=== PATIENT | female | born 1945 | race Caucasian/White ===

== ENCOUNTER → 2023-07-09 10:55 | Outpatient (BNVA) | payer MEDICARE, MEDICAID, SELFPAY | PROVIDERS: Family Provider Family Medicine; Visit Provider Podiatrist Foot & Ankle Surgery | DX: E11.9 Type 2 diabetes mellitus without complications (principal); B35.1 Tinea unguium | CPT/HCPCS: 99203 ==

== ENCOUNTER 2024-08-18 09:38 | Emergency (ER) | payer MEDICARE, MEDICAID, SELFPAY ==
[2024-08-18 09:44] VITALS: BP 157/99; PULSE 82; RESP 17; TEMP 36.8; O2SAT 97
--- NOTE | 2024-08-18 09:48 | ED_ITS ---
HPI - Fall General: Chief Complaint: Extremity Injury, Upper Stated Complaint: fall Time Seen by Provider: 08/18/24 09:41 Source: patient and EMS Mode of arrival: EMS Limitations: altered mental status (pt with hx of dementia) History of Present Illness: Patient is a nice 79-year-old female with a history of dementia here from her senior care for evaluation following a fall. senior care reports states that the fall was witnessed. Patient was running down the [place] towards the bathroom when she accidentally tripped and fell and struck face first . They did state her nose bled for a small amount of time before subsiding. There was no LOC. She reportedly is not on anticoagulation. Patient tells me she does not remember falling. She feels like her nose feels sore but has no other physi telly complaints at this time. MD complaint: fall Onset (ago): hour(s) Fall from: standing Fall witnessed: yes, by living facility staff Place fall occurred: home Loss of consciousness: None Prolonged down time: no Symptoms prior to fall: none Context: tripped/slipped Location of injury: face Associated symptoms-after fall: Reports no associated symptoms; Denies difficulty walking, headache(s), lightheadedness or neck pain Related Data Home Medications Medication Instructions Recorded Confirmed acetaminophen 325 mg tablet 325 mg PO Q4H 08/18/24 08/18/24 (Tylenol) atorvastatin 20 mg tablet 20 mg PO QPM 08/18/24 08/18/24 bisacodyl 10 mg rectal suppository 10 mg CA DAILY 08/18/24 08/18/24 cyanocobalamin (vitamin B-12) 250 250 mcg PO DAILY 08/18/24 08/18/24 mcg tablet donepezil 10 mg tablet 10 mg PO QPM 08/18/24 08/18/24 fluticasone propionate 50 1 spray intranasal DAILY 08/18/24 08/18/24 mcg/actuation nasal spray,suspension insulin detemir U-100 100 unit/mL 58 unit SUBCUT QPM 08/18/24 08/18/24 (3 mL) subcutaneous pen insulin lispro 100 unit/mL See Rx Instructions .Route .COMPLEX 08/18/24 08/18/24 subcutaneous solution (Humalog U-100 Insulin) lisinopril 20 1 tab PO DAILY 11/04/24 11/04/24 mg-hydrochlorothiazide 25 mg tablet metformin 1,000 mg tablet 1,000 mg PO BID 08/18/24 08/18/24 sitagliptin phosphate 50 mg tablet 50 mg PO DAILY 08/18/24 08/18/24 (Jay) trazodone 50 mg tablet 50 mg PO DAILY 08/18/24 08/18/24 Allergies Allergy/AdvReac Type Severity Reaction Status Date / Time No Known Allergies Allergy Unverified 07/09/23 11:00 Review of Systems General: Reports: Other (unknown how accurate this is with her dementia) Const: Denies: fever(s) Eyes: Denies: change in vision ENMT: Reports: sinus pain (states her nose feels sore); Denies: dental pain Card: Denies: palpitations, irregular heart rhythm or lightheadedness Resp: Denies: dyspnea GI: Denies: nausea or vomiting Musc: Denies: neck pain, back pain, extremity pain, extremity swelling, joint pain or joint swelling Neuro: Denies: headache(s), difficulty walking or dizziness Physical Exam Const: COMMON NORMALS: no acute distress, average body habitus, healthy appearing, alert and well nourished EXAM LIMITATIONS: altered mental status (chronic dementia; at baseline per senior care) GENERAL APPEARANCE: cooperative ORIENTATION/CONSCIOUSNESS: Yes awake and Yes oriented to person HENMT: COMMON NORMALS: normocephalic, atraumatic and TM's normal bilaterally HEAD & SCALP: normal to inspection, normocephalic and atraumatic; no Davidson's sign, no hematoma and no raccoon eyes FACE & SINUS: other (mild ecchymosis nose) NOSE: Other nasal findings present (mild ecchymosis; tenderness; mild dried blood to nares) TYMPANIC MEMBRANE: TM's normal bilaterally MOUTH: other (no intraoral injuries noted) Eye: COMMON NORMALS: Equal, round and reactive pupils present and EOMs intact bilaterally GENERAL EYE: appearance normal, both eyes and all related structures and normal light reflex PUPIL: Yes Equal, round and reactive pupils present DIRECT OPHTHALMOSCOPY: Yes normal light reflex Neck/C-Spine: COMMON NORMALS: full ROM GENERAL: Yes normal visual inspection CERVICAL SPINE: Yes cervical ROM normal, Yes pain with cervical ROM, Yes Cervical spine tenderness (states it feels sore ), No step off deformity and No Paracervical muscle tenderness Chest: COMMONS NORMALS: normal inspection of the chest and normal palpation of entire chest wall Resp: COMMON NORMALS: normal respiratory effort and clear to auscultation bilaterally AUSCULTATION: clear to auscultation bilaterally Cardio: COMMON NORMALS: regular rate and regular rhythm RATE: regular rate RHYTHM: regular rhythm GI: COMMON NORMALS: Normal to inspection, nondistended, normoactive bowel sounds present, Soft to palpation, non-tender, No hepatosplenomegaly present and no masses INSPECTION: Yes normal to inspection and No abdominal wall ec chymosis AUSCULTATION: Yes normoactive bowel sounds PALPATION: Yes Soft to palpation and Yes No hepatosplenomegaly present Back/Pelvis: COMMON NORMALS: thoracic and lumbar spine normal to inspection, no thoracic nor lumbar tenderness and thoraco-lumbar ROM normal Extremity: COMMON NORMALS: normal to inspection and full ROM GENERAL: Yes normal exam except as noted Neuro: NINI COMA SCALE: document GCS findings Nixon coma scale eye opening: Spontaneous Nixon coma scale verbal response: Orientated Nini coma scale motor response: Obey commands Nini coma scale total score: 15 COMMON NORMALS: CN's II-XII intact bilaterally, moves all extremities, no focal motor deficits, no sensory deficits noted and gait normal SENSORIUM/ORIENTATION: Yes alert and Yes oriented to person SPEECH: speech normal GAIT: Yes Normal gait present Skin: COMMON NORMALS: no rashes or lesions noted GENERAL SKIN EXAM: no rashes or lesions noted TRAUMA: no lacerations or abrasions Course Vital Signs: Vital signs: Vital Signs Temperature 98.2 F 08/18/24 09:44 Pulse Rate 76 08/18/24 10:08 Respiratory Rate 17 08/18/24 09:44 Blood Pressure 145/85 08/18/24 10:08 Pulse Oximetry 96 08/18/24 10:08 Oxygen Delivery Me thod Room Air 08/18/24 10:08 MDM - Fall Medical Decision Making Patient clinically appears in no acute distress. Her vital signs are stable. She was a witnessed trip and fall from her senior care. She feels like her nose and neck feels sore. CTs of her head, cervical spine, and facial bones were obtained. She has no evidence for intracranial trauma. She does have a slightly depressed nasal bone fracture. Will have CM set her up with ENT for this. CT cervical spine negative. Patient will allowed discharge back to her senior care. Medical Records I reviewed the patient's medical records. Lab Data Radiology Impressions Cervical Spine CT 08/18/24 09:48 IMPRESSION: No evidence of acute fracture or dislocation. Face CT 08/18/24 09:48 IMPRESSION: 1. Slight depressed fractures involving the LEFT anterior nasal bones. 2. No other visualized acute fractures. 3. Frothy secretions in the sphenoid sinus compatible with sinusitis. 4. Opacification the RIGHT mastoid air cells and middle ear. Head CT 08/18/24 09:48 IMPRESSION: 1. No evidence of intracranial hemorrhage or mass effect. 2. Slightly depressed fracture LEFT anterior nasal bones. 3. Chronic appearing opacification RIGHT mastoid air cells and middle ear. 4. No acute intracranial findings. All radiology interpretation(s) finalized by discharge Discharge Plan Discharge Patient Disposition: Home Clinical Impression: Fall on same level from tripping Closed fracture nasal bone Qualifiers: Encounter type: initial encounter Qualified Code(s): S02.2XXA - Fracture of nasal bones, initial encounter for closed fracture Condition: Stable Prescriptions: No Action acetaminophen [Tylenol] 325 mg Tablet 325 mg PO Q4H atorvastatin 20 mg Tablet 20 mg PO QPM trazodone 50 mg Tablet 50 mg PO DAILY donepezil 10 mg Tablet 10 mg PO QPM cyanocobalamin (vitamin B-12) 250 mcg Tablet 250 mcg PO DAILY bisacodyl 10 mg Suppository 10 mg CA DAILY metformin 1,000 mg Tablet 1,000 mg PO BID lisinopril-hydrochlorothiazide 20-25 mg Tablet 1 tab PO DAILY Rx Instructions: take 1 tablet by mouth in the morning, hold for systolic bp is less than 100 or pulse is less than 60 insulin lispro [Humalog U-100 Insulin] 100 unit/mL Solution See Rx Instructions .ROUTE .COMPLEX Rx Instructions: inject as per sliding scale, 150-200=0 201-250=2 251-300=4 301-350=6 351-400=8 subq before meals fluticasone propionate 50 mcg/actuation [place],Suspension 1 spray INTRANASAL DAILY Rx Instructions: administer into each nostril insulin detemir U-100 100 unit/mL (3 mL) Insulin Pen 58 unit SUBCUT QPM Januvia 50 mg Tablet 50 mg PO DAILY Discharge Orders: Discharge ED (Routine); Ordered 08/18/24 Ordered By: Eli Jasso Patient Instructions: Nasal Fracture (ED) Activity Restrictions/Additional Instructions: Patient's imaging of her head and cervical spine were unremarkable. CT facial bones showing a slightly depressed nasal bone fracture. Case management will have her follow-up with ENT for this. She will be allowed discharge back to her senior care. Coding Level of Care Code ED Funder for Shaina Badillo
--- NOTE | 2024-08-18 09:48 | CT_ITS ---
WS: [id number] CT HEAD TECHNIQUE: Noncontrast CT of the head obtained from the skullbase to the vertex. CLINICAL INFORMATION: trauma/fall COMPARISON: None. DLP: 3125.[address] scans at [facility] use at least one of these dose optimization techniques: automated e xposure control; mA and/or kV adjustment per patient size (includes targeted exams where dose is matc hed to clinical indication); or iterative reconstruction. FINDINGS: No evidence of intracranial hemorrhage or mass effect. Ventricular system and basal cisterns are bone nt. Moderate small vessel changes with moderate parenchymal volume loss. No extra-axial fluid collect ions. No evidence of mass or mass effect. Slight depressed fracture of the LEFT anterior nasal bones. Mucosal thickening in the paranasal sinus es. Small amount of fluid in the sphenoid sinus. Chronic appearing opacification RIGHT mastoid air ce lls and middle ear. LEFT mastoid air cells are well aerated. Vascular calcification. CT/CT head wo con* [id number] IMPRESSION: 1. No evidence of intracranial hemorrhage or mass effect. 2. Slightly depressed fracture LEFT anterior nasal bones. 3. Chronic appearing opacification RIGHT mastoid air cells and middle ear. 4. No acute intracranial findings.
--- NOTE | 2024-08-18 09:48 | CT_ITS ---
WS: [id number] CT FACIAL BONES TECHNIQUE: Noncontrast facial bones with coronal and sagittal reformatted images. CLINICAL INFORMATION: trauma/fall COMPARISON: None. DLP: 3125.[address] scans at [facility] use at least one of these dose optimization techniques: automated e xposure control; mA and/or kV adjustment per patient size (includes targeted exams where dose is matc hed to clinical indication); or iterative reconstruction. FINDINGS: Slight depressed fractures involving the LEFT anterior nasal bones. No other visualized acu te fractures. Frothy secretions in the sphenoid sinus compatible with sinusitis. Mucosal thickening in the LEFT greater than RIGHT maxillary sinuses and frontoethmoidal recesses. Nor mal posterior nasopharynx. Opacification the RIGHT mastoid air cells and middle ear. CT/CT facial bones wo con* [id number] IMPRESSION: 1. Slight depressed fractures involving the LEFT anterior nasal bones. 2. No other visualized acute fractures. 3. Frothy secretions in the sphenoid sinus compatible with sinusitis. 4. Opacification the RIGHT mastoid air cells and middle ear.
--- NOTE | 2024-08-18 09:48 | CT_ITS ---
WS: [id number] CT CERVICAL TRAUMA TECHNIQUE: Noncontrast CT of the cervical spine with coronal and sagittal reformatted images. CLINICAL INFORMATION: trauma/fall COMPARISON: None. DLP: 3125.[address] scans at [facility] use at least one of these dose optimization techniques: automated e xposure control; mA and/or kV adjustment per patient size (includes targeted exams where dose is matc hed to clinical indication); or iterative reconstruction. FINDINGS: Straightening of the normal cervical lordosis. Pannus at the C1-2 articulation. Slight anterolisthesi s C4 on C5. Disc space narrowing worse at C3-C4 C4-C5 and C5-C6. Normal craniocervical junction. Dens is normal in appearance. Normal occipital condyles. No high-grad e spinal canal narrowing. Normal C1 ring. No evidence of acute fracture or dislocation. Normal prevertebral soft tissues. Few prominent cervical lymph nodes nonspecific, but likely reactive . Chronic opacification RIGHT mastoid air cells and middle ear. Nodular thyroid. CT/CT cervical spin wo con* [id number] IMPRESSION: No evidence of acute fracture or dislocation.
[2024-08-18 10:08] VITALS: BP 145/85; PULSE 76; O2SAT 96
[2024-08-18 14:53] VITALS: BP 138/65; PULSE 80; O2SAT 96
--- NOTE | 2024-08-19 07:45 | DCPLANNER ---
Sent referral for [facility]- Patient has facial fx - [facility] will not take
== END 2024-08-18 14:55 | disposition home or self-care (01) ==
PROVIDERS: Emergency Provider Physician Assistant
DX: S02.2XXA Fracture of nasal bones, initial encounter for closed fracture (principal); W01.0XXA Fall on same level from slipping, tripping and stumbling without subsequent striking against object, initial encounter; Z79.4 Long term (current) use of insulin
CPT/HCPCS: 70450; 70486; 72125; 99284

== ENCOUNTER → 2025-04-27 10:07 | Outpatient (BNVA) | payer MEDICARE, MEDICAID, SELFPAY | PROVIDERS: Visit Provider Nurse Practitioner Family | DX: D48.5 Neoplasm of uncertain behavior of skin (principal); D22.61 Melanocytic nevi of right upper limb, including shoulder; D22.71 Melanocytic nevi of right lower limb, including hip | CPT/HCPCS: 99203 ==

== ENCOUNTER → 2025-06-05 09:32 | Outpatient (BNVA) | payer MEDICARE, MEDICAID, SELFPAY | PROVIDERS: Visit Provider Dermatology | DX: D48.5 Neoplasm of uncertain behavior of skin (principal) | CPT/HCPCS: 11602; 12032 ==

== ENCOUNTER → 2025-06-19 10:39 | Outpatient (BNVA) | payer MEDICARE, MEDICAID, SELFPAY | PROVIDERS: Visit Provider Dermatology | DX: L57.8 Other skin changes due to chronic exposure to nonionizing radiation (principal); L81.4 Other melanin hyperpigmentation; Z08 Encounter for follow-up examination after completed treatment for malignant neoplasm; Z85.828 Personal history of other malignant neoplasm of skin; D48.5 Neoplasm of uncertain behavior of skin | CPT/HCPCS: 11102; 99213 ==

== ENCOUNTER → 2025-07-22 13:49 | Outpatient (BNVA) | payer MEDICARE, MEDICAID, SELFPAY | PROVIDERS: Visit Provider Dermatology | DX: D04.62 Carcinoma in situ of skin of left upper limb, including shoulder (principal) | CPT/HCPCS: 17264 ==